=== PATIENT | female | born 1980 ===

== ENCOUNTER 2021-05-26 18:13 | Emergency (ER) | payer MEDICAID ==
--- NOTE | 2021-05-26 19:24 | NUR ---
PT AMBULATORY TO ROOM FROM LOBBY. FAMILY AT BS TO INTERPRET.
[2021-05-26 19:36] VITALS: BP 138/97
== END 2021-05-26 20:04 | disposition home or self-care (01) ==
LOC: ED 18:30
DX: J15.9 Unspecified bacterial pneumonia (principal); J12.9 Viral pneumonia, unspecified
CPT/HCPCS: 99283